=== PATIENT | female | born 1955 | race African-American/Black ===

== ENCOUNTER 2023-04-26 08:25 | Day surgery (SDC) | payer OTHER, MEDICARE ==
[2023-04-24 16:42] VITALS: BMI 29.0
[2023-04-26 10:19] VITALS: TEMP 98
[2023-04-26 10:20] VITALS: PULSE 72; RESP 16
[2023-04-26 10:21] VITALS: BP 122/68
== END 2023-04-26 10:52 | disposition home or self-care (01) ==
LOC: FASU-ENDO 08:25
PROVIDERS: ATTEND Internal Medicine Gastroenterology
PROC: 0DBM8ZX Excision of Descending Colon, Via Natural or Artificial Opening Endoscopic, Diagnostic (ICD-10-PCS; principal; 2023-04-26 09:39)
DX: Z12.11 Encounter for screening for malignant neoplasm of colon (principal); K63.5 Polyp of colon; K57.30 Diverticulosis of large intestine without perforation or abscess without bleeding; Z86.010 Personal history of colon polyps; Z80.0 Family history of malignant neoplasm of digestive organs
CPT/HCPCS: 88305-TC